=== PATIENT | male | born 1970 | race African-American/Black ===

== ENCOUNTER 2019-10-11 13:46 | Emergency (ER) | payer MEDICAID ==
[~2019-10-11] VITALS: Ht 185.4 cm; Wt 85.7 kg
[2019-10-11] MEDS ORDERED: ALBUTEROL FS 2.5 MG/3 ML VIAL.NEB ONE (14:22)
[2019-10-11] MEDS ORDERED: IPRATROPIUM NEB FS 0.5 MG/2.5 ML AMPUL.NEB ONE (14:22)
[2019-10-11] MEDS ORDERED: predniSONE 20 MG TABLET PO ONE (14:30)
[2019-10-11] MEDS ORDERED: IPRATROPIUM NEB FS 0.5 MG/2.5 ML AMPUL.NEB NEB ONE (14:30)
[2019-10-11] MEDS ORDERED: ALBUTEROL FS 2.5 MG/3 ML VIAL.NEB NEB ONE (14:30)
--- NOTE | 2019-10-11 14:30 | NUR ---
sob and cough x 4 days, afebrile 100%RA. PT AAOX4, VSS. DENIES CP, DIZZINESS, N/V @ THIS TIME. PT SEEN & EVAL'D BY DR. RADER. PT'S GETTING BREATHING TREATMENT. WILL CONT TO MONITOR.
[2019-10-11] MEDS ORDERED: predniSONE 20 MG TABLET ONE (15:06)
--- NOTE | 2019-10-11 15:29 | NUR ---
Patient discharged to home in stable condition. Written and verbal after care instructions given. Patient verbalizes understanding of instruction.
[2019-10-11 15:31] VITALS: BP 120/78
== END 2019-10-11 15:32 | disposition home or self-care (01) ==
LOC: ER 13:56
DX: J06.9 Acute upper respiratory infection, unspecified (principal); Z60.2 Problems related to living alone
CPT/HCPCS: 71045; 94640; 99283; J7512

== ENCOUNTER 2022-11-03 05:38 | Emergency (ER) | payer MEDICAID ==
[~2022-11-03] VITALS: Ht 185.4 cm; Wt 88.5 kg
--- NOTE | 2022-11-03 06:20 | NUR ---
TO ER BED 3. BIBDAUGHTER FOR BACK PAIN RADIATING DOWN TO FOOT. PT IS ALERT AND ORIENTED. RR EVEN AND NON LABORED. CONNECTED TO MONITOR
[2022-11-03] MEDS ORDERED: KETOROLAC TROMETHAMINE INJ 30 MG/ML VIAL ONE (06:56)
[2022-11-03] MEDS ORDERED: KETOROLAC TROMETHAMINE INJ 30 MG/ML VIAL IM ONE (07:00)
--- NOTE | 2022-11-03 07:04 | NUR ---
XRAY AT BEDSIDE
--- NOTE | 2022-11-03 09:05 | NUR ---
pt complaints of pain "constant- worse with movement. Shot did NOT work" Dr Cervantes in to re-eval and update pt
[2022-11-03] MEDS ORDERED: DEXAMETHASONE 4 MG TABLET ONE (09:29)
[2022-11-03] MEDS ORDERED: DEXAMETHASONE 1 MG TABLET PO ONE (09:30)
[2022-11-03 09:40] VITALS: BP 109/69
--- NOTE | 2022-11-03 09:40 | NUR ---
Patient discharged to home in stable condition. Written and verbal after care instructions given. Patient verbalizes understanding of instruction.
== END 2022-11-03 09:41 | disposition home or self-care (01) ==
LOC: ER 05:40
DX: M70.72 Other bursitis of hip, left hip (principal); Y93.B9 Activity, other involving muscle strengthening exercises
CPT/HCPCS: 99283; 96372; 73503; J8540; J1885; 73502